=== PATIENT | male | born 1990 | race Caucasian/White ===

== ENCOUNTER 2017-04-06 02:04 | Emergency (ER) | payer SELFPAY ==
[2017-04-06 02:22] VITALS: RESP 18; TEMP 98.8; O2SAT 96
--- NOTE | 2017-04-06 02:38 | EDPHY ---
H & P Time Seen by Provider: 04/06/17 02:25 HPI/ROS: This 26-year-old morbidly obese male presents to the emergency department [facility] for complaints of fatigue over the last 3 days. 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 He has been working a lot hours. In addition to his 3:00 p.m. to midnight shift he has often been working day shifts as well. He called in sick for work yesterday after spending the day watching the [place] and going to the [employer] and his employer was upset with him. He comes in [facility] at 2am because he "thought he better get checked out if he was feeling poorly enough to call in sick at work." He states he has been sleeping a lot but yet he still feels tired. His body feels heavy. He states he normally drinks upwards of a gallon of water a day and someone mentioned he might be diabetic. He has not been ill recently. He denies having any medical problems but has not seen a doctor in over a year. REVIEW OF SYSTEMS: Constitutional: No fever, no chills. Eyes: No discharge. No changes in vision (wears glasses). ENT: No sore throat. Respiratory: No cough, no shortness of breath. Cardiac: No chest pain, no palpitations. Gastrointestinal: No abdominal pain, no vomiting. Denies constipation. Maybe some occasional loose stool. Genitourinary: No dysuria, no hematuria. Musculoskeletal: No back pain. Skin: No rashes. Neurological: No headache. Past Medical/Surgical History: PMH: morbid obesity PSH: tonsillectomy FH: unknown (foster child) Smoking Status: Never smoked (Denies ETOH, marijuana, illicit drugs) Physical Exam: General Appearance: Alert, no distress. Morbidly obese. HEENT: Normocephalic, atraumatic. Pupils equal and round, no pallor or injection. Fundi benign. Mucous membranes moist, no erythema or exudate. Neck: Supple, no masses. Respiratory: There are no retractions, lungs are clear to auscultation. Cardiovascular: Regular rate and rhythm. No murmur. Gastrointestinal: Abdomen is obese, soft and nontender, no masses, bowel sounds normal. Neurological: Grossly intact, non focal. Skin: Warm and dry, no rashes. Musculoskeletal: No clubbing, cyanosis or edema. Extremities are symmetrical, full range of motion. Psychiatric: Patient is oriented X 3, there is no agitation. DIFFERENTIAL DIAGNOSIS: After history and physical exam differential diagnosis was considered for but not limited to abnormal blood glucose, anemia, electrolyte abnormality, thyroid disorder, effects of change in altitude, abnormal sleep patterns, fatigue from long work hours, work excuse. Constitutional: Initial Vital Signs Temperature (C) 98.8 F 04/06/17 02:18 Heart Rate 95 04/06/17 02:18 Respiratory Rate 18 04/06/17 02:18 Blood Pressure 149/97 H 04/06/17 02:18 O2 Sat (%) 96 04/06/17 02:18 O2 Delivery Mode Room Air Allergies/Adverse Reactions: latex Allergy (Intermediate, Verified 04/06/17 02:18) Itching Home Medications: Medication Instructions Recorded NK [No Known Home Meds] 04/06/17 Medical Decision Making ED Course/Re-evaluation: The patient was seen and examined, vital signs were reviewed. Blood pressure was slightly elevated and the patient was advised to follow this up with a primary care provider. Orthostatic vital signs were otherwise unremarkable. CBC, comprehensive metabolic panel, magnesium, and thyroid stimulating hormone are unremarkable. The patient had no change in his condition while here. He was very concerned about getting a work excuse this evening and he was given a note for his missed shift yesterday. He will establish care with a primary care provider. He will return to the ER if any further concerning issues as needed. - Data Points Laboratory Results: Laboratory Results 04/06/17 02:40 04/06/17 02:40 04/06/17 04/06/17 02:40 02:40 WBC 9.43 10^3/uL 10^3/uL (3.80-9.50) RBC 5.98 10^6/uL 10^6/uL (4.40-6.38) Hgb 15.5 g/dL g/dL (13.7-17.5) Hct 46.9 % % (40.0-51.0) MCV 78.4 fL L fL (81.5-99.8) MCH 25.9 pg L pg (27.9-34.1) MCHC 33.0 g/dL g/dL (32.4-36.7) RDW 14.2 % % (11.5-15.2) Plt Count 312 10^3/uL 10^3/uL (150-400) MPV 9.0 fL fL (8.7-11.7) Neut % (Auto) 64.3 % % (39.3-74.2) Lymph % (Auto) 27.6 % % (15.0-45.0) [place] % (Auto) 6.6 % % (4.5-13.0) Eos % (Auto) 1.0 % % (0.6-7.6) Baso % (Auto) 0.3 % % (0.3-1.7) Nucleat RBC Rel Count 0.0 % % (0.0-0.2) Absolute Neuts (auto) 6.07 10^3/uL 10^3/uL (1.70-6.50) Absolute Lymphs (auto) 2.60 10^3/uL 10^3/uL (1.00-3.00) Absolute Monos (auto) 0.62 10^3/uL 10^3/uL (0.30-0.80) Absolute Eos (auto) 0.09 10^3/uL 10^3/uL (0.03-0.40) Absolute Basos (auto) 0.03 10^3/uL 10^3/uL (0.02-0.10) Absolute Nucleated RBC 0.00 10^3/uL 10^3/uL (0-0.01) Immature Gran % 0.2 % % (0.0-1.1) Immature Gran # 0.02 10^3/uL 10^3/uL (0.00-0.10) Sodium 143 mEq/L mEq/L (134-144) Potassium 4.2 mEq/L mEq/L (3.5-5.2) Chloride 102 mEq/L mEq/L (97-110) Carbon Dioxide 25 mEq/l mEq/l (22-31) Anion Gap 16 mEq/L mEq/L (8-16) BUN 17 mg/dL mg/dL (7-23) Creatinine 0.8 mg/dL mg/dL (0.7-1.3) Estimated GFR > 60 Glucose 96 mg/dL mg/dL (70-100) Calcium 9.7 mg/dL mg/dL (8.5-10.4) Magnesium 1.9 mg/dL mg/dL (1.6-2.3) Total Bilirubin 0.6 mg/dL mg/dL (0.1-1.4) Conjugated Bilirubin 0.3 mg/dL mg/dL (0.0-0.5) Unconjugated Bilirubin 0.3 mg/dL mg/dL (0.0-1.1) AST 39 IU/L IU/L (17-59) ALT 57 IU/L IU/L (21-72) Alkaline Phosphatase 87 IU/L IU/L (38-126) Total Protein 8.4 g/dL H g/dL (6.3-8.2) Albumin 4.3 g/dL g/dL (3.5-5.0) TSH 0.724 uIU/mL uIU/mL (0.465-4.680) Departure - Departure Disposition: Home, Routine, Self-Care Clinical Impression: Fatigue Condition: Good Instructions: Fatigue (ED) Additional Instructions: Establish Care with a primary care provider of your choice for a full physical, recheck of your blood pressure, and routine care. Referrals: Johnnie Mast MD [Medical Doctor] - As per Instructions Stand Alone Forms: Work Excuse
[2017-04-06 02:50] LABS: % IMMATURE GRANULYOCYTES 0.2 % (0.0-1.1); ABSOLUTE IMMATURE GRANULOCYTES 0.02 10^3/uL (0.00-0.10); ADD DIFF? NO; ADD MORPH? NO; ADD SCAN? NO; ATYPICAL LYMPHOCYTE FLAG 0 (0-99); FRAGMENT RBC FLAG 0 (0-99); HEMATOCRIT 46.9 % (40.0-51.0); HEMOGLOBIN 15.5 g/dL (13.7-17.5); LEFT SHIFT FLG 0 (0-99); LIPEMIA HEMOLYSIS FLAG 80 (0-99); MEAN CELL HEMOGLOBIN 25.9 pg (27.9-34.1); MEAN CELL VOLUME 78.4 fL (81.5-99.8); PLATELET CLUMPS FLAG 0 (0-99); PLATELET COUNT 312 10^3/uL (150-400); RED BLOOD CELL COUNT 5.98 10^6/uL (4.40-6.38); RED CELL DISTRIBUTION WIDTH 14.2 % (11.5-15.2)
[2017-04-06 02:53] VITALS: BP 136/91; PULSE 90
[2017-04-06 03:04] LABS: ALANINE AMINOTRANSFERASE 57 IU/L (21-72); ALBUMIN 4.3 g/dL (3.5-5.0); ALKALINE PHOSPHATASE 87 IU/L (38-126); ANION GAP 16 mEq/L (8-16); ASPARTATE AMINOTRANSFERASE 39 IU/L (17-59); BILIRUBIN,TOTAL 0.6 mg/dL (0.1-1.4); BILIRUBIN-CONJUGATED 0.3 mg/dL (0.0-0.5); BILIRUBIN-UNCONJUGATED 0.3 mg/dL (0.0-1.1); CALCIUM 9.7 mg/dL (8.5-10.4); CARBON DIOXIDE 25 mEq/l (22-31); CHLORIDE 102 mEq/L (97-110); CREATININE 0.8 mg/dL (0.7-1.3); GLOMERULAR FILTRATION RATE > 60; GLUCOSE 96 mg/dL (70-100); MAGNESIUM 1.9 mg/dL (1.6-2.3); POTASSIUM 4.2 mEq/L (3.5-5.2); SODIUM 143 mEq/L (134-144); TOTAL PROTEIN 8.4 g/dL (6.3-8.2)
== END 2017-04-06 03:15 | disposition home or self-care (01) ==
LOC: CED 02:04
DX: R53.83 Other fatigue (principal); Z91.040 Latex allergy status
CPT/HCPCS: 80048-PO; 80076-PO; 83735-PO; 84443-PO; 85025-PO

== ENCOUNTER 2017-05-25 18:10 | Emergency (ER) | payer SELFPAY ==
[2017-05-25 18:28] VITALS: RESP 16
[2017-05-25] MEDS ORDERED: SULFAMET/TMP DS PREPACK#2 BTL TAKEHOME ONE (18:37)
[2017-05-25] MEDS ORDERED: CEPHALEXIN 500MG PREPACK#4 BTL TAKEHOME ONE (18:37)
[2017-05-25] MEDS ORDERED: SULFAMETHOX/TMP 800/160 MG 1 TAB PO ONE (18:37)
[2017-05-25] MEDS ORDERED: CEPHALEXIN 500 MG CAP PO ONE (18:37)
--- NOTE | 2017-05-25 18:39 | EDPHY ---
H & P Time Seen by Provider: 05/25/17 18:28 HPI/ROS: CHIEF COMPLAINT: Left foot and ankle redness and swelling HISTORY OF PRESENT ILLNESS: 1 week ago patient was inner tubing in the [place] when he hit his left great toe on a rock. It started swelling up 2 days later and then over the last 4 days he has had pain redness and swelling in his foot and ankle. Extends up the distal 3rd of his calf but not to his knee or thigh. No fever or chills. Worse with weight-bearing or palpation. REVIEW OF SYSTEMS: Eye: no change in vision ENT: no sore throat Cardiac: No chest pain Pulmonary: No cough Abdomen: No nausea or vomiting Musculoskeletal: Pain in his foot and lower ankle where it is red. Skin: Skin redness as outlined above Neuro: no headache Constitutional: no fever : no urinary symptoms A comprehensive 10 point review of systems is otherwise negative aside from elements mentioned in the history of present illness. PAST MEDICAL HISTORY: Denies. No diabetes. Social history: No tobacco or alcohol. General Appearance: Alert and conversant, cooperative. Eyes: No scleral icterus. ENT, Mouth: Normal mucous membranes. Respiratory: Normal respiratory effort, breath sounds equal, lungs are clear to auscultation. Cardiovascular: Regular rate and rhythm. No murmur. Gastrointestinal: Abdomen is soft and non tender. Neurological: Alert and oriented x3. Normally conversant. Face symmetric, normal movement and sensation in all extremities. Skin: Redness around left great toe and the dorsum of the foot and around the ankle on both sides but does not extend proximally than the ankle. Very slight redness on the distal 3rd of the calf but not on the proximal 2/3 to the knee. Slightly limited range of motion of the ankle because of pain but normal range of motion of the knee. No fluctuance or eschar, no blisters. No lymphangitis. Patient recently lost his left 4th toenail. Musculoskeletal: Some edema around the left ankle but compartments are soft in both lower extremities. Psychiatric: Not agitated. Emergency Department course/MDM: Patient has localized cellulitis without fever or constitutional symptoms or lymphangitis. I think septic joint or fasciitis is unlikely. Abscess unlikely. I think it is reasonable to trial the patient on oral antibiotics with crutches nonweightbearing, will need IV antibiotics if this does not resolve with oral. Bactrim and Keflex discussed and consented. 190: X-ray negative for fracture or dislocation or gas in the soft tissue. Smoking Status: Never smoked Constitutional: Initial Vital Signs Temperature (C) 37.3 C 05/25/17 18:27 Heart Rate 98 05/25/17 18:27 Respiratory Rate 16 05/25/17 18:27 Blood Pressure 138/92 H 05/25/17 18:27 O2 Sat (%) 94 05/25/17 18:27 O2 Delivery Mode Room Air Allergies/Adverse Reactions: latex Allergy (Intermediate, Verified 04/06/17 02:18) Itching Home Medications: Medication Instructions Recorded Cephalexin [Keflex] 500 mg PO QID #40 cap 05/25/17 Sulfamethox/Tmp 800/160 mg 1 tab PO BID@1000,2200 #20 tab 05/25/17 [Bactrim Ds] Medical Decision Making - Diagnostics Imaging Results: Imaging Impressions Foot X-Ray 05/25/17 18:37 Impression: 1. Soft tissue swelling noted. 2. No underlying osseous abnormality seen left foot. - Data Points Medications Given: Discontinued Medications Cephalexin (Keflex 500 Mg Prepack#4) 1 btl TAKEHOME EDNOW ONE PRN Reason: Protocol Stop: 05/25/17 18:38 Last Admin: 05/25/17 18:56 Dose: 1 btl Cephalexin HCl (Keflex) 1,000 mg PO EDNOW ONE PRN Reason: Protocol Stop: 05/25/17 18:38 Last Admin: 05/25/17 18:57 Dose: 1,000 mg Trimethoprim/Sulfamethoxazole (Bactrim Ds Prepack#2) 1 btl TAKEHOME EDNOW ONE Stop: 05/25/17 18:38 Last Admin: 05/25/17 18:56 Dose: 1 btl Trimethoprim/Sulfamethoxazole (Bactrim Ds) 1 ea PO EDNOW ONE PRN Reason: Protocol Stop: 05/25/17 18:38 Last Admin: 05/25/17 18:57 Dose: 1 ea Departure - Departure Disposition: Home, Routine, Self-Care Clinical Impression: Cellulitis of left foot Condition: Good Instructions: Cellulitis (ED) Additional Instructions: Crutches with no weight-bearing on left foot. No work until the redness and pain are improved. Return for fever, worsening pain or redness or swelling Referrals: Dolbeare,Dirk, MD [Medical Doctor] - 3-4 days, if not improved Prescriptions: Cephalexin [Keflex] 500 mg PO QID #40 cap Sulfamethox/Tmp 800/160 mg [Bactrim Ds] 1 tab PO BID@1000,2200 #20 tab
[2017-05-25 19:20] VITALS: BP 135/80; PULSE 88; TEMP 98.1; O2SAT 96
== END 2017-05-25 19:18 | disposition home or self-care (01) ==
DX: L03.116 Cellulitis of left lower limb (principal); Z91.040 Latex allergy status

== ENCOUNTER 2017-05-27 00:32 | Inpatient (IN) | payer SELFPAY ==
[2017-05-27 01:50] LABS: % IMMATURE GRANULYOCYTES 0.3 % (0.0-1.1); ABSOLUTE IMMATURE GRANULOCYTES 0.03 10^3/uL (0.00-0.10); ADD DIFF? NO; ADD MORPH? NO; ADD SCAN? NO; ATYPICAL LYMPHOCYTE FLAG 0 (0-99); FRAGMENT RBC FLAG 0 (0-99); HEMATOCRIT 43.4 % (40.0-51.0); HEMOGLOBIN 14.2 g/dL (13.7-17.5); LEFT SHIFT FLG 0 (0-99); LIPEMIA HEMOLYSIS FLAG 80 (0-99); MEAN CELL HEMOGLOBIN 25.7 pg (27.9-34.1); MEAN CELL HEMOGLOBIN CONCENTR. 32.7 g/dL (32.4-36.7); MEAN CELL VOLUME 78.6 fL (81.5-99.8); MEAN PLATELET VOLUME 9.2 fL (8.7-11.7); PLATELET CLUMPS FLAG 0 (0-99); PLATELET COUNT 324 10^3/uL (150-400); RED BLOOD CELL COUNT 5.52 10^6/uL (4.40-6.38); RED CELL DISTRIBUTION WIDTH 14.1 % (11.5-15.2)
[2017-05-27 02:08] LABS: ANION GAP 15 mEq/L (8-16); CALCIUM 9.7 mg/dL (8.5-10.4); CARBON DIOXIDE 23 mEq/l (22-31); CHLORIDE 106 mEq/L (97-110); CREATININE 1.1 mg/dL (0.7-1.3); GLOMERULAR FILTRATION RATE > 60; GLUCOSE 84 mg/dL (70-100); POTASSIUM 4.4 mEq/L (3.5-5.2); SODIUM 144 mEq/L (134-144)
[2017-05-27] MEDS ORDERED: IBUPROFEN 200 MG TAB PO PRN (03:25)
[2017-05-27] MEDS ORDERED: ONDANSETRON DISINTEGRATING 4 MG TAB PO PRN (03:25)
[2017-05-27] MEDS ORDERED: ACETAMINOPHEN 325 MG TAB PO PRN (03:25)
[2017-05-27] MEDS ORDERED: NS 1,000 ML IV ONE (03:25)
[2017-05-27] MEDS ORDERED: ONDANSETRON 4 MG/2 ML VIAL IVP PRN (03:25)
--- NOTE | 2017-05-27 03:27 | EDPHY ---
H & P Stated Complaint: worsening L foot and ankle cellulitis Time Seen by Provider: 05/27/17 01:20 HPI/ROS: HPI The patient presents with worsening left leg redness, pain, swelling over the last several days. He was seen in the emergency room 2 days ago for a left leg and foot cellulitis and started on Bactrim and Keflex. He has been taking these antibiotics for 36 hours and has not missed any doses. However the redness has moved proximally to his mid aldrich. He has had subjective fevers at home. He has vomited 3 times today. His redness began after he was in [place] and he cut his great toe. REVIEW OF SYSTEMS Constitutional: No fever, no chills. Eyes: No discharge. ENT: No sore throat. Cardiovascular: No chest pain, no palpitations. Respiratory: No cough, no shortness of breath. Gastrointestinal: No abdominal pain, positive for vomiting. Genitourinary: No hematuria. Musculoskeletal: No back pain. Skin: No rashes. Neurological: No headache. PMHx: Obesity, no prior history of cellulitis or skin infection Soc Hx: Housed PHYSICAL General Appearance: Alert, no distress Eyes: Pupils equal and round no pallor or injection ENT, Mouth: Mucous membranes moist Respiratory: There are no retractions, lungs are clear to auscultation Cardiovascular: Regular rate and rhythm Gastrointestinal: Abdomen is soft and non-tender, no masses, bowel sounds normal Neurological: A&O, moves all extremities Skin: Left leg with mild erythema of the dorsum of his foot, anterior ankle and distal 1/3 of aldrich with severe erythema, warmth, tenderness, this is not circumferential Musculoskeletal: Neck is supple non tender Extremities: symmetrical, full range of motion Psychiatric: Patient is oriented X 3, there is no agitation Source: Patient Exam Limitations: No limitations - Personal History Current Tetanus/Diphtheria Vaccine: No - Medical/Surgical History Hx Asthma: No Hx Chronic Respiratory Disease: No Hx Diabetes: No Hx Cardiac Disease: No Hx Renal Disease: No Hx Cirrhosis: No Hx Alcoholism: No Hx HIV/AIDS: No Hx Splenectomy or Spleen Trauma: No Other PMH: Tonsillectomy, depression treatment as a teenager. - Social History Smoking Status: Never smoked Constitutional: Initial Vital Signs Temperature (C) 36.8 C 05/27/17 00:35 Heart Rate 102 H 05/27/17 00:35 Respiratory Rate 15 05/27/17 00:35 Blood Pressure 145/89 H 05/27/17 00:35 O2 Sat (%) 94 05/27/17 00:35 O2 Delivery Mode Room Air Allergies/Adverse Reactions: latex Allergy (Intermediate, Verified 04/06/17 02:18) Itching Home Medications: Medication Instructions Recorded Cephalexin [Keflex] 500 mg PO QID #40 cap 05/25/17 Sulfamethox/Tmp 800/160 mg 1 tab PO BID@1000,2200 #20 tab 05/25/17 [Bactrim Ds] Medical Decision Making Differential Diagnosis: This is a 26-year-old male who is healthy, with obesity, who presents with worsening left leg redness, pain, edema after being diagnosed with a cellulitis 2 days ago in this emergency room and started on Keflex and Bactrim. Differential diagnosis includes cellulitis, less likely abscess, less likely necrotizing fasciitis. In the emergency room, basic labs were checked and were unremarkable except for slightly elevated white blood cell count. The patient was given a dose of Ancef. I consulted with Dr. Kim of the hospitalist service and we plan to admit him to the hospital for IV antibiotics. - Data Points Laboratory Results: Laboratory Results 05/27/17 01:20 05/27/17 01:20 05/27/17 05/27/17 01:20 01:20 WBC 11.81 10^3/uL H 10^3/uL (3.80-9.50) RBC 5.52 10^6/uL 10^6/uL (4.40-6.38) Hgb 14.2 g/dL g/dL (13.7-17.5) Hct 43.4 % % (40.0-51.0) MCV 78.6 fL L fL (81.5-99.8) MCH 25.7 pg L pg (27.9-34.1) MCHC 32.7 g/dL g/dL (32.4-36.7) RDW 14.1 % % (11.5-15.2) Plt Count 324 10^3/uL 10^3/uL (150-400) MPV 9.2 fL fL (8.7-11.7) Neut % (Auto) 67.1 % % (39.3-74.2) Lymph % (Auto) 21.6 % % (15.0-45.0) [place] % (Auto) 8.6 % % (4.5-13.0) Eos % (Auto) 2.0 % % (0.6-7.6) Baso % (Auto) 0.4 % % (0.3-1.7) Nucleat RBC Rel Count 0.0 % % (0.0-0.2) Absolute Neuts (auto) 7.93 10^3/uL H 10^3/uL (1.70-6.50) Absolute Lymphs (auto) 2.55 10^3/uL 10^3/uL (1.00-3.00) Absolute Monos (auto) 1.01 10^3/uL H 10^3/uL (0.30-0.80) Absolute Eos (auto) 0.24 10^3/uL 10^3/uL (0.03-0.40) Absolute Basos (auto) 0.05 10^3/uL 10^3/uL (0.02-0.10) Absolute Nucleated RBC 0.00 10^3/uL 10^3/uL (0-0.01) Immature Gran % 0.3 % % (0.0-1.1) Immature Gran # 0.03 10^3/uL 10^3/uL (0.00-0.10) Sodium 144 mEq/L mEq/L (134-144) Potassium 4.4 mEq/L mEq/L (3.5-5.2) Chloride 106 mEq/L mEq/L (97-110) Carbon Dioxide 23 mEq/l mEq/l (22-31) Anion Gap 15 mEq/L mEq/L (8-16) BUN 18 mg/dL mg/dL (7-23) Creatinine 1.1 mg/dL mg/dL (0.7-1.3) Estimated GFR > 60 Glucose 84 mg/dL mg/dL (70-100) Calcium 9.7 mg/dL mg/dL (8.5-10.4) Medications Given: Discontinued Medications Cefazolin Sodium/Dextrose (Ancef 1 Gm (Premix)) 50 mls @ 200 mls/hr IV EDNOW ONE PRN Reason: Protocol Stop: 05/27/17 02:00 Last Admin: 05/27/17 01:55 Dose: 50 mls Departure - Departure Disposition: [facility] Inpatient Acute Clinical Impression: Cellulitis Qualifiers: Site of cellulitis: extremity Site of cellulitis of extremity: lower extremity Laterality: left Qualified Code(s): L03.116 - Cellulitis of left lower limb Condition: Fair
[2017-05-27 06:34] LABS: % IMMATURE GRANULYOCYTES 0.3 % (0.0-1.1); ABSOLUTE IMMATURE GRANULOCYTES 0.03 10^3/uL (0.00-0.10); ADD DIFF? NO; ADD MORPH? NO; ADD SCAN? NO; ATYPICAL LYMPHOCYTE FLAG 10 (0-99); FRAGMENT RBC FLAG 0 (0-99); HEMATOCRIT 38.5 % (40.0-51.0); HEMOGLOBIN 12.9 g/dL (13.7-17.5); LEFT SHIFT FLG 0 (0-99); LIPEMIA HEMOLYSIS FLAG 80 (0-99); MEAN CELL HEMOGLOBIN 26.1 pg (27.9-34.1); MEAN CELL HEMOGLOBIN CONCENTR. 33.5 g/dL (32.4-36.7); MEAN CELL VOLUME 77.9 fL (81.5-99.8); PLATELET CLUMPS FLAG 0 (0-99); PLATELET COUNT 282 10^3/uL (150-400); RED BLOOD CELL COUNT 4.94 10^6/uL (4.40-6.38); RED CELL DISTRIBUTION WIDTH 14.1 % (11.5-15.2)
[2017-05-27 06:48] LABS: ANION GAP 13 mEq/L (8-16); CALCIUM 9.1 mg/dL (8.5-10.4); CARBON DIOXIDE 18 mEq/l (22-31); CHLORIDE 110 mEq/L (97-110); CREATININE 0.8 mg/dL (0.7-1.3); GLOMERULAR FILTRATION RATE > 60; GLUCOSE 115 mg/dL (70-100); SODIUM 141 mEq/L (134-144)
[2017-05-27] MEDS ORDERED: ENOXAPARIN 40 MG/0.4 ML SYR SC SCH (09:00)
--- NOTE | 2017-05-27 10:23 | GHP ---
[f rep st] HISTORY AND PHYSICAL DATE OF ADMISSION: 05/27/2017 CHIEF COMPLAINT: Leg pain. HISTORY OF PRESENT ILLNESS: A 26-year-old morbidly obese male who presents after stubbing his toe i n the [place] while playing with some friends. The patient noted an injury to the great toe o n the left foot with some bleeding around the medial aspect of the nail bed. The patient had some e rythema and some discomfort at that site. Then noted over the course of the next 24-48 hours that d iscomfort and erythema extended up his toe, the dorsum of his foot and into his lower leg. He did s [place] care at an outpatient clinic. They prescribed antibiotics which included, per his report, Kefle x and Bactrim. He took those only for 1 day before concern about progression of the erythema up his ankle and associated subjective fevers and chills as well as nausea and vomiting. The patient kenia es any diarrhea. Denies chest pain. Denies shortness of breath. Has had a slightly dry unproducti ve cough for a couple of days. Denies headache, vision changes or other rashes. The patient has no t had a history of cellulitis in the past. PAST MEDICAL HISTORY: Morbid obesity. SOCIAL HISTORY: Negative for tobacco, alcohol or illicit drugs. He is visiting from [place] for t he summer just to enjoy the outdoor sun. FAMILY HISTORY: Unknown. Patient was raised in the foster care system. REVIEW OF SYSTEMS: A 10-point review of systems is negative with the exception of that reported in the HPI. PHYSICAL EXAMINATION: VITAL SIGNS: Blood pressure 136/85, heart rate 102, respiratory rate 15, 94% on room air, 36.7. GENERAL: This is a morbidly obese young male with no acute distress. HEENT: Notable for dry mucous membranes. Eye exam is negative for any icterus. CARDIAC: Patient is tachy cardic but regular. PULMONARY: Clear to auscultation bilaterally. GASTROINTESTINAL: Positive bow el sounds. ABDOMEN: Soft and nontender in all 4 quadrants. MUSCULOSKELETAL: Notable for bilatera l lower extremity edema, left greater than right. SKIN: Notable for erythema of the great toe on t he left extending up the dorsum of the foot to 3-4 inches above the ankle. It is hot to the touch a nd painful on examination. NEUROLOGIC: He is alert and oriented x3. PSYCHIATRIC: He is pleasant and cooperative. DATA: White count 11.8, hematocrit 43.4, platelets of 324. Creatinine of 1.1. X-ray of the foot which I personally reviewed and interpreted shows soft tissue swelling. No bony a bnormalities. ASSESSMENT AND PLAN: This is a 26-year-old male presenting with cellulitis. 1. Acute cellulitis of the left lower extremity. Not positive we can call this an oral antibiotic failure as the patient has taken so few days. We will treat with IV cefazolin as no abscesses or pu stular component to the infection. Foot imaging is negative for any underlying fractures. Will wri te the patient for ibuprofen, follow his clinical course on IV antibiotics. 2. Nausea and vomiting, suspect related to his systemic illness. We will treat with IV fluids and IV antiemetics. 3. Systemic inflammatory response syndrome/sepsis. Patient presents with tachycardia, leukocytosis . Presumed source is cellulitis. Again, we will treat with IV antibiotics and IV fluids. 4. Prophylaxis with Lovenox. DIET: Regular. DISPOSITION: I expect greater than 2 midnights as the patient is presenting with systemic symptoms from his cellulitis requiring IV antibiotics and fluid resuscitation. I have discussed the case wit h the emergency room physician. Patient will be triaged to Med/Surg Floor for care. /[id number]/MODL
--- NOTE | 2017-05-27 16:28 | HOSPPROG ---
Hospitalist Progress Note Assessment/Plan: * LE cellulitis -improving on IV ancef -monitor toe for abscess vs. foreign body * Sepsis (POA) * Morbid obesity BMI 43 Subjective: Redness much better. Focal area of toe at initial injury site still equisitely tender. Objective: Vital Signs Temp Pulse Resp BP Pulse Ox 36.9 C 78 16 124/84 H 94 05/27/17 07:40 05/27/17 07:40 05/27/17 07:40 05/27/17 07:40 05/27/17 07:40 Laboratory Results 05/27/17 06:15 05/27/17 06:15 05/26/17 05/27/17 05/28/17 05:59 05:59 05:59 Intake Total 50 Balance 50 Foot Xray - no osteo, no foreign body seen - Physical Exam Constitutional: no apparent distress, appears nourished, not in pain Cardiovascular: regular rate and rhythym, no murmur, rub, or gallop Respiratory: no respiratory distress, no rales or rhonchi, clear to auscultation Gastrointestinal: normoactive bowel sounds, soft, non-tender abdomen, no palpable masses Skin: abrasion, erythema, induration, fluctuance, rash, other (left great toe with area of possible fluctuance, no drainage.), No mottled Neurologic: AAOx3, sensation intact bilaterally Psychiatric: interacting appropriately, not anxious, not encephalopathic, thought process linear ICD10 Worksheet Patient Problems: Problems Problem Status Onset Cellulitis Acute
[2017-05-27] MEDS: ENOXAPARIN 40 MG/0.4 ML SYR SC SCH (20:30)
[2017-05-28 05:03] LABS: % IMMATURE GRANULYOCYTES 0.3 % (0.0-1.1); ABSOLUTE IMMATURE GRANULOCYTES 0.02 10^3/uL (0.00-0.10); ADD DIFF? NO; ADD MORPH? NO; ADD SCAN? NO; ATYPICAL LYMPHOCYTE FLAG 10 (0-99); FRAGMENT RBC FLAG 0 (0-99); HEMATOCRIT 41.8 % (40.0-51.0); HEMOGLOBIN 13.5 g/dL (13.7-17.5); LEFT SHIFT FLG 0 (0-99); LIPEMIA HEMOLYSIS FLAG 80 (0-99); MEAN CELL HEMOGLOBIN 25.4 pg (27.9-34.1); MEAN CELL HEMOGLOBIN CONCENTR. 32.3 g/dL (32.4-36.7); MEAN CELL VOLUME 78.6 fL (81.5-99.8); MEAN PLATELET VOLUME 9.2 fL (8.7-11.7); PLATELET CLUMPS FLAG 0 (0-99); PLATELET COUNT 297 10^3/uL (150-400); RED BLOOD CELL COUNT 5.32 10^6/uL (4.40-6.38); RED CELL DISTRIBUTION WIDTH 14.1 % (11.5-15.2)
[2017-05-28] MEDS: ENOXAPARIN 40 MG/0.4 ML SYR SC SCH ×2 (09:00→20:00)
--- NOTE | 2017-05-28 10:03 | WOCRNPDOC ---
WOCRN Advanced Assessment Note - Skin Integrity Problem, Advanced Assess Left Medial First Toe Dressing Type: Open to Air Exudate Amount: None Erica Wound Tissue: Erythema, Macerated, Erythema Marked by Wound RN Site Measurement - Head-to-Toe Length X Width X Depth (cm): 0.3x0.1x0.1 Skin Integrity Problem Comment: Patient reports "stubbing toe" while in [place]. Medial nail bed has a small wound that appears to be a seperation of skin from nail with macerated wound edges. He is unsure if there is a foreign object in his toe. Wound care will sign off for now. Apply silvasorb and bandaid to area. Please reconsult prn. Reported to Linda SHIELDS.
--- NOTE | 2017-05-28 11:12 | HOSPPROG ---
Hospitalist Progress Note Assessment/Plan: 26 yo M w obesity here w lle cellulitis cellulitis: continue cefazolin add'l 24 hours edematous toe: check film to eval for FB or abscess obesity: rec weight loss microcytosis: oupt workup proph: high risk bid enox Subjective: still w sig erythema. afebrile Objective: Vital Signs Temp Pulse Resp BP Pulse Ox 37.4 C 90 15 134/91 H 95 05/28/17 08:00 05/28/17 08:00 05/28/17 08:00 05/28/17 08:00 05/28/17 08:00 Laboratory Results 05/28/17 03:24 05/27/17 06:15 05/27/17 05/28/17 05/29/17 05:59 05:59 05:59 Intake Total 50 2150 Balance 50 2150 - Physical Exam Constitutional: no apparent distress, appears nourished Eyes: PERRL, anicteric sclera Ears, Nose, Mouth, Throat: moist mucous membranes, hearing normal Cardiovascular: regular rate and rhythym, no murmur, rub, or gallop Respiratory: no respiratory distress, no rales or rhonchi Gastrointestinal: normoactive bowel sounds, soft, non-tender abdomen, no palpable masses Genitourinary: no bladder fullness, No lin in urethra Musculoskeletal: other (erythema decreased but present. toe edematous and painful but no fluctuance. no inguinal LAD) Neurologic: AAOx3 ICD10 Worksheet Patient Problems: Problems Problem Status Onset Cellulitis Acute
--- NOTE | 2017-05-29 10:03 | HOSPPROG ---
Hospitalist Progress Note Assessment/Plan: 26 yo M w obesity here w lle cellulitis cellulitis: continue cefazolin add'l 24 hours edematous toe: check film to eval for FB or abscess obesity: rec weight loss microcytosis: oupt workup proph: home today continue po abx > 30 minutes Subjective: afebrile Objective: Vital Signs Temp Pulse Resp BP Pulse Ox 37.0 C 70 16 105/53 L 92 05/29/17 04:32 05/29/17 04:32 05/29/17 04:32 05/29/17 04:32 05/29/17 04:32 Laboratory Results 05/28/17 03:24 05/27/17 06:15 05/28/17 05/29/17 05/30/17 05:59 05:59 05:59 Intake Total 2150 500 Balance 2150 500 - Physical Exam Constitutional: no apparent distress, appears nourished Eyes: PERRL, anicteric sclera Ears, Nose, Mouth, Throat: moist mucous membranes, hearing normal Cardiovascular: regular rate and rhythym, no murmur, rub, or gallop Respiratory: no respiratory distress, no rales or rhonchi Gastrointestinal: normoactive bowel sounds, soft, non-tender abdomen Genitourinary: no bladder fullness, No lin in urethra Skin: warm, normal color, other (erythema on L leg has receded from original lines. no lymphangitic streaking. no inguinal LAD) Neurologic: AAOx3 Psychiatric: interacting appropriately ICD10 Worksheet Patient Problems: Problems Problem Status Onset Cellulitis Acute
[2017-05-29 10:08] VITALS: BP 134/95; PULSE 93; RESP 18; TEMP 97.7; O2SAT 93
[2017-05-29] MEDS: ENOXAPARIN 40 MG/0.4 ML SYR SC SCH (10:25)
--- NOTE | 2017-05-29 18:40 | GDS ---
[f rep st] DISCHARGE SUMMARY DISCHARGE DIAGNOSES: 1. Morbid obesity. 2. Left lower extremity cellulitis. PROCEDURES: During this hospitalization a toe x-ray showing no foreign body or evidence of osteomye litis. HOSPITAL COURSE: Patient presented with a toe cellulitis. He had abraded a toe walking barefoot in [place]. He developed cellulitis. He was prescribed outpatient Keflex and Bactrim, which he started, but then presented here with progressive cellulitis. He received 48 hours of IV cephalexi n. He was afebrile while here. He is discharged home to complete the Keflex and Bactrim prescripti on. Films showed no evidence of foreign body or osteomyelitis. /[id number]/MODL
--- NOTE | 2017-06-02 12:20 | PQFORM ---
PHYSICIAN QUERY FORM Needs Your Response This query form is being sent to you to assure this patient record is coded properly. 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 Layne, It is documented in Dr. Kim's history and physical and her first progress note that the patient had sepsis based on her presenting with tachycardia and leukocytosis. In your clinical opinion, should the diagnosis of sepsis be added to the diagnoses on the discharge summary? ____X___yes no other Thank you, Myaa Yeager, AJ HIM Coding INSTRUCTIONS FOR RESPONSE: Answer question by clicking on the "Edit Document" button. Move cursor to area below the stars. When complete, hit "Save." Click on the "Sign" button, then click "Sign" again. Type in your PIN and hit "Enter." MTDD
== END 2017-05-29 15:50 | disposition home or self-care (01) | DRG 872 ==
LOC: OBSVTOIN 03:17 → F2W 05:01 → F3N 05-28 05:38
PROVIDERS: ADMIT Hospitalist; ATTEND Internal Medicine
DX: A41.9 Sepsis, unspecified organism (principal); L03.116 Cellulitis of left lower limb; Z68.41 Body mass index [BMI] 40.0-44.9, adult
CPT/HCPCS: 96365; 97161-GP; J0690; J1650

== ENCOUNTER 2017-06-07 21:58 | Emergency (ER) | payer SELFPAY ==
[2017-06-07 22:07] VITALS: RESP 16; O2SAT 94
--- NOTE | 2017-06-07 22:14 | EDPHY ---
H & P Stated Complaint: pt admitted for cellulitis in LLE/foot 8 days ago, says sx have returned HPI/ROS: HPI CHIEF COMPLAINT: Left lower extremity redness, recent cellulitis HISTORY OF PRESENT ILLNESS: This patient 26-year-old male otherwise healthy significant past medical history for morbid obesity, and recent hospitalization on May 27 through May 29 for left lower extremity cellulitis responded well to IV antibiotics. Was recently discharged from the hospital. placed on outpatient p.o. antibioticsCompleted course. He now presents back to the emergency room with redness and swelling to the left foot and left ankle. He has full range of motion. No evidence of septic joint on exam however feels that his cellulitis has returned. He denies fever. He does endorse left lower extremity pain. Past Medical History: recent hospitalization for left lower extremity cellulitis Past Surgical History: No recent surgical history Social History: denies daily use drugs alcohol tobacco products. Family History: Noncontributory ROS REVIEW OF SYSTEMS: A comprehensive 10 point review of systems is otherwise negative aside from elements mentioned in the history of present illness. Exam Constitutional triage nursing summary reviewed, vital signs reviewed, awake/ alert. Eyes normal conjunctivae and sclera, EOMI, PERRLA. HENT normal inspection, atraumatic, moist mucus membranes, no epistaxis, neck supple/ no meningismus, no raccoon eyes. Respiratory clear to auscultation bilaterally, normal breath sounds, no respiratory distress, no wheezing. Cardiovascular rate normal, regular rhythm, no murmur, no edema, distal pulses normal. Gastrointestinal soft, non-tender, no rebound, no guarding, normal bowel sounds, no distension, no pulsatile mass. Genitourinary no CVA tenderness. Musculoskeletal left lower extremity; the foot is swollen with erythema, there is no crepitus, no gas on exam, erythema tracks up the ankle, does not go up the tib-fib region. He is warm, distally neurovascular intact. no midline vertebral tenderness, full range of motion, no calf swelling, no tenderness of extremities, no meningismus, good pulses, neurovascularly intact. Skin pink, warm, & dry, no rash, skin atraumatic. Neurologic awake, alert and oriented x 3, AAOx3, moves all 4 extremities equally, motor intact, sensory intact, CN II-XII intact, normal cerebellar, normal vision, normal speech. Psychiatric normal mood/affect. Heme/Lymph/Immune no lymphadenopathy. Differential Diagnosis: Includes but is not limited to in a particular order a lower extremity cellulitis, strep infection, MRSA infection, staph infection Medical Decision Making: plan for this patient IV establishment, IV blood work including CBC, ESR, CRP, procalcitonin, 1 dose of IV Rocephin here in the emergency room. Blood cultures. Will re-evaluate. Re-evaluation: 2354: Re-evaluation at this time is leg is warm and erythematous. Patient is not comfortable going home is requesting admission to the hospital for IV antibiotics. I explained that I will place him in observation status admitted overnight to the hospital. For left lower extremity cellulitis. Blood cultures have been pulled here. ESR and CRP noted to be elevated procalcitonin noted be elevated. CBC shows mild leukocytosis. Left lower extremity shows cellulitis. Certainly not extreme cellulitis or very significant that at patient's request he feels more comfortable being admitted to the hospital. I will consult the hospitalist service for admission. [id number]: I asked Dr. Layne to come and see and evaluate the patient. As he is the 1 that discharged he tells me that this patient's leg seems much improved. He does not recommend hospital admission for this patient I will allow her to go home. Patient does understand return emergency room if any worsening symptoms questions or concerns. This includes worsening redness, pain, swelling. Source: Patient - Medical/Surgical History Hx Asthma: No Hx Chronic Respiratory Disease: No Hx Diabetes: No Hx Cardiac Disease: No Hx Renal Disease: No Hx Cirrhosis: No Hx Alcoholism: No Hx HIV/AIDS: No Hx Splenectomy or Spleen Trauma: No Other PMH: Tonsillectomy, depression treatment as a teenager. - Social History Smoking Status: Never smoked Constitutional: Initial Vital Signs Temperature (C) 36.8 C 06/07/17 22:04 Heart Rate 86 06/07/17 22:04 Respiratory Rate 16 06/07/17 22:04 Blood Pressure 143/98 H 06/07/17 22:04 O2 Sat (%) 94 06/07/17 22:04 O2 Delivery Mode Room Air Allergies/Adverse Reactions: latex Allergy (Intermediate, Verified 06/07/17 22:08) Itching Home Medications: Medication Instructions Recorded Cephalexin [Keflex (*)] 500 mg PO QID #40 cap 05/25/17 Sulfamethox/Tmp 800/160 mg 1 tab PO BID@1000,2200 #20 tab 05/25/17 [Bactrim DS] Cephalexin [Keflex] 500 mg PO Q6H #28 cap 06/08/17 Medical Decision Making - Data Points Laboratory Results: Laboratory Results 06/07/17 22:50 06/07/17 22:50 06/07/17 06/07/17 22:50 22:50 WBC 9.90 10^3/uL H 10^3/uL (3.80-9.50) RBC 5.42 10^6/uL 10^6/uL (4.40-6.38) Hgb 13.9 g/dL g/dL (13.7-17.5) Hct 42.2 % % (40.0-51.0) MCV 77.9 fL L fL (81.5-99.8) MCH 25.6 pg L pg (27.9-34.1) MCHC 32.9 g/dL g/dL (32.4-36.7) RDW 14.6 % % (11.5-15.2) Plt Count 346 10^3/uL 10^3/uL (150-400) MPV 9.2 fL fL (8.7-11.7) Neut % (Auto) 58.5 % % (39.3-74.2) Lymph % (Auto) 32.1 % % (15.0-45.0) [place] % (Auto) 6.7 % % (4.5-13.0) Eos % (Auto) 2.1 % % (0.6-7.6) Baso % (Auto) 0.4 % % (0.3-1.7) Nucleat RBC Rel Count 0.0 % % (0.0-0.2) Absolute Neuts (auto) 5.79 10^3/uL 10^3/uL (1.70-6.50) Absolute Lymphs (auto) 3.18 10^3/uL H 10^3/uL (1.00-3.00) Absolute Monos (auto) 0.66 10^3/uL 10^3/uL (0.30-0.80) Absolute Eos (auto) 0.21 10^3/uL 10^3/uL (0.03-0.40) Absolute Basos (auto) 0.04 10^3/uL 10^3/uL (0.02-0.10) Absolute Nucleated RBC 0.00 10^3/uL 10^3/uL (0-0.01) Immature Gran % 0.2 % % (0.0-1.1) Immature Gran # 0.02 10^3/uL 10^3/uL (0.00-0.10) ESR 28 MM/HR H MM/HR (0-15) Sodium 143 mEq/L mEq/L (134-144) Potassium 4.6 mEq/L mEq/L (3.5-5.2) Chloride 105 mEq/L mEq/L (97-110) Carbon Dioxide 21 mEq/l L mEq/l (22-31) Anion Gap 17 mEq/L H mEq/L (8-16) BUN 18 mg/dL mg/dL (7-23) Creatinine 1.2 mg/dL mg/dL (0.7-1.3) Estimated GFR > 60 Glucose 105 mg/dL H mg/dL (70-100) Calcium 10.0 mg/dL mg/dL (8.5-10.4) Total Bilirubin 0.3 mg/dL mg/dL (0.1-1.4) AST 37 IU/L IU/L (17-59) ALT 74 IU/L H IU/L (21-72) Alkaline Phosphatase 75 IU/L IU/L (38-126) C-Reactive Protein 23.0 mg/L H mg/L (<10.0) Total Protein 8.2 g/dL g/dL (6.3-8.2) Albumin 4.5 g/dL g/dL (3.5-5.0) Procalcitonin 0.05 ng/mL ng/mL (0.02-0.10) Medications Given: Discontinued Medications Ceftriaxone Sodium/Dextrose (Rocephin 1 Gm (Premix)) 50 mls @ 100 mls/hr IV EDNOW ONE PRN Reason: Protocol Stop: 06/07/17 22:57 Last Admin: 06/07/17 22:54 Dose: 50 mls Departure - Departure Disposition: Home, Routine, Self-Care Clinical Impression: Cellulitis Qualifiers: Site of cellulitis: extremity Site of cellulitis of extremity: lower extremity Laterality: left Qualified Code(s): L03.116 - Cellulitis of left lower limb Condition: Good Instructions: Cellulitis (ED) Additional Instructions: 1. Warm soaks to her foot 3 times a day. 2. Take antibiotics as prescribed. 3. Follow up with Podiatry. 4. Return emergency room if you have worsening redness, warmth, pain, fever swelling. Referrals: NONE *PRIMARY CARE P,. [Primary Care Provider] - As per Instructions Garrison Mccall DPM [Doctor of Podiatric Medicine] - As per Instructions Prescriptions: Cephalexin [Keflex] 500 mg PO Q6H #28 cap
[2017-06-07 23:08] LABS: % IMMATURE GRANULYOCYTES 0.2 % (0.0-1.1); ABSOLUTE IMMATURE GRANULOCYTES 0.02 10^3/uL (0.00-0.10); ADD DIFF? NO; ADD MORPH? NO; ADD SCAN? NO; ATYPICAL LYMPHOCYTE FLAG 0 (0-99); FRAGMENT RBC FLAG 0 (0-99); HEMATOCRIT 42.2 % (40.0-51.0); HEMOGLOBIN 13.9 g/dL (13.7-17.5); LEFT SHIFT FLG 0 (0-99); LIPEMIA HEMOLYSIS FLAG 80 (0-99); MEAN CELL HEMOGLOBIN 25.6 pg (27.9-34.1); MEAN CELL HEMOGLOBIN CONCENTR. 32.9 g/dL (32.4-36.7); MEAN CELL VOLUME 77.9 fL (81.5-99.8); MEAN PLATELET VOLUME 9.2 fL (8.7-11.7); PLATELET CLUMPS FLAG 20 (0-99); PLATELET COUNT 346 10^3/uL (150-400); RED BLOOD CELL COUNT 5.42 10^6/uL (4.40-6.38); RED CELL DISTRIBUTION WIDTH 14.6 % (11.5-15.2)
[2017-06-07 23:19] LABS: SEDIMENTATION RATE 28 MM/HR (0-15)
[2017-06-07 23:22] LABS: ALANINE AMINOTRANSFERASE 74 IU/L (21-72); ALBUMIN 4.5 g/dL (3.5-5.0); ALKALINE PHOSPHATASE 75 IU/L (38-126); ANION GAP 17 mEq/L (8-16); ASPARTATE AMINOTRANSFERASE 37 IU/L (17-59); BILIRUBIN,TOTAL 0.3 mg/dL (0.1-1.4); CARBON DIOXIDE 21 mEq/l (22-31); CHLORIDE 105 mEq/L (97-110); CREATININE 1.2 mg/dL (0.7-1.3); GLOMERULAR FILTRATION RATE > 60; GLUCOSE 105 mg/dL (70-100); POTASSIUM 4.6 mEq/L (3.5-5.2); SODIUM 143 mEq/L (134-144); TOTAL PROTEIN 8.2 g/dL (6.3-8.2)
[2017-06-08 00:21] LABS: PROCALCITONIN 0.05 ng/mL (0.02-0.10)
[2017-06-08 00:49] VITALS: BP 141/91; PULSE 85; TEMP 98.4
== END 2017-06-08 00:44 | disposition home or self-care (01) ==
DX: L03.116 Cellulitis of left lower limb (principal); Z91.040 Latex allergy status
CPT/HCPCS: 96365; J0696